=== PATIENT | female | born 1940 | race Caucasian/White ===

== ENCOUNTER → 2016-05-31 | Outpatient (CLI) | payer OTHER, MEDICARE | LOC: FIMAGING 12:53 | DX: Z12.31 Encounter for screening mammogram for malignant neoplasm of breast (principal) | CPT/HCPCS: G0202 ==

== ENCOUNTER 2018-04-23 11:17 | Emergency (ER) | payer OTHER, MEDICARE ==
--- NOTE | 2018-04-23 11:38 | EDPHY ---
H & P Stated Complaint: UPPER MID CP LAST NIGHT/AWAKENED AT 0400/GETTING BETTER TODAY Time Seen by Provider: 04/23/18 11:37 HPI/ROS: CHIEF COMPLAINT: Chest pressure HISTORY OF PRESENT ILLNESS: The patient presents the ED for evaluation of anterior chest pressure that began at 4:00 a.m. in the morning. The patient attributed her symptoms to gastroesophageal reflux disease. She took some Advil without improvement of her symptoms. They have gradually lessened this morning. She denies any abdominal pain, nausea or vomiting. She denies any radiation of the pain to the back neck or shoulders. She has no known history of coronary artery disease. The patient denies any melena. She denies any fever, cough or congestion. She denies recent infectious symptoms. She currently rates her pain is mild in nature. REVIEW OF SYSTEMS: A comprehensive 10 point review of systems is otherwise negative aside from elements mentioned in the history of present illness. Source: Patient - Personal History Current Tetanus Diphtheria and Acellular Pertussis (TDAP): No - Medical/Surgical History Hx Asthma: No Hx Chronic Respiratory Disease: No Hx Diabetes: No Hx Cardiac Disease: No Hx Renal Disease: No Hx Cirrhosis: No Hx Alcoholism: No Hx HIV/AIDS: No Hx Splenectomy or Spleen Trauma: No Other PMH: med- hypothyroidism. surg- D and C, ovarian cyst, appendectomy, tonsillectomy - Social History Smoking Status: Former smoker - Physical Exam Exam: General Appearance: Alert, no distress Eyes: Pupils equal and round no pallor or injection ENT, Mouth: Mucous membranes moist Respiratory: There are no retractions, lungs are clear to auscultation Cardiovascular: Regular rate and rhythm Gastrointestinal: Abdomen is soft and nontender, no masses, bowel sounds normal Neurological: A&O, normal motor function, normal sensory exam, normal cranial nerves Skin: Warm and dry, no rashes Musculoskeletal: Neck is supple nontender Extremities: symmetrical, full range of motion Constitutional: Initial Vital Signs Temperature (C) 36.3 C 04/23/18 11:25 Heart Rate 81 04/23/18 11:25 Respiratory Rate 17 04/23/18 11:25 Blood Pressure 119/54 L 04/23/18 11:25 O2 Sat (%) 95 04/23/18 11:25 O2 Delivery Mode Room Air Allergies/Adverse Reactions: No Known Allergies Allergy (Verified 04/23/18 11:24) Home Medications: Medication Instructions Recorded Synthroid 88 mcg (*) 12/28/15 Aspirin 81mg (*) 04/23/18 Medical Decision Making - Diagnostics EKG Interpretation: EKG: Complete interpretation has been separately recorded in the [facility] archive. Summary impression: Sinus rhythm, rate 67, slight left axis deviation , no ischemic changes noted Imaging Results: Imaging Impressions Chest X-Ray 04/23/18 11:27 Impression: No acute abnormality. ED Course/Re-evaluation: Patient presents to the ED with complaints of mid chest pain which began last night. The patient felt her symptoms were consistent with indigestion. She did not take any [id number] medications aside from Tylenol. She presents to the ED today secondary to ongoing pain. The patient has no risk factors for coronary artery disease aside from age. The patient's EKG demonstrates no evidence of ischemia. The patient's troponin is normal. The patient's CBC, liver function tests and lipase are unremarkable. Patient was given a GI cocktail in the emergency department and had complete resolution of her symptoms. I re-evaluated the patient at 1:00 p.m. And feel that she can be discharged home with a presumptive diagnosis of gastroesophageal reflux disease and esophageal spasm. Patient is advised to return to the ED for any worsening symptoms or other concerns. She will be advised to use Maalox and ranitidine. Differential Diagnosis: Differential diagnosis considered includes gastroesophageal reflux disease, pericarditis, myocarditis, pancreatitis, cholecystitis - Data Points Laboratory Results: Laboratory Results 04/23/18 11:45 04/23/18 11:45 04/23/18 04/23/18 04/23/18 11:51 11:45 11:45 WBC 11.13 10^3/uL H 10^3/uL (3.80-9.50) RBC 4.49 10^6/uL 10^6/uL (4.18-5.33) Hgb 13.9 g/dL g/dL (12.6-16.3) Hct 42.1 % % (38.0-47.0) MCV 93.8 fL fL (81.5-99.8) MCH 31.0 pg pg (27.9-34.1) MCHC 33.0 g/dL g/dL (32.4-36.7) RDW 14.0 % % (11.5-15.2) Plt Count 187 10^3/uL 10^3/uL (150-400) MPV 9.4 fL fL (8.7-11.7) Neut % (Auto) 77.0 % H % (39.3-74.2) Lymph % (Auto) 11.4 % L % (15.0-45.0) Dewitt % (Auto) 8.6 % % (4.5-13.0) Eos % (Auto) 2.2 % % (0.6-7.6) Baso % (Auto) 0.5 % % (0.3-1.7) Nucleat RBC Rel Count 0.0 % % (0.0-0.2) Absolute Neuts (auto) 8.56 10^3/uL H 10^3/uL (1.70-6.50) Absolute Lymphs (auto) 1.27 10^3/uL 10^3/uL (1.00-3.00) Absolute Monos (auto) 0.96 10^3/uL H 10^3/uL (0.30-0.80) Absolute Eos (auto) 0.25 10^3/uL 10^3/uL (0.03-0.40) Absolute Basos (auto) 0.06 10^3/uL 10^3/uL (0.02-0.10) Absolute Nucleated RBC 0.00 10^3/uL 10^3/uL (0-0.01) Immature Gran % 0.3 % % (0.0-1.1) Immature Gran # 0.03 10^3/uL 10^3/uL (0.00-0.10) Sodium 139 mEq/L mEq/L (135-145) Potassium 3.5 mEq/L mEq/L (3.5-5.2) Chloride 107 mEq/L mEq/L (97-110) Carbon Dioxide 24 mEq/l mEq/l (22-31) Anion Gap 8 mEq/L mEq/L (6-14) BUN 21 mg/dL mg/dL (7-23) Creatinine 0.7 mg/dL mg/dL (0.6-1.0) Estimated GFR > 60 Glucose 116 mg/dL H mg/dL (70-100) Calcium 8.9 mg/dL mg/dL (8.5-10.4) Total Bilirubin 1.5 mg/dL H mg/dL (0.1-1.4) Conjugated Bilirubin 0.2 mg/dL mg/dL (0.0-0.5) Unconjugated Bilirubin 1.3 mg/dL H mg/dL (0.0-1.1) AST 27 IU/L IU/L (14-46) ALT 22 IU/L IU/L (9-52) Alkaline Phosphatase 130 IU/L H IU/L (38-126) POC Troponin I 0.00 ng/mL ng/mL (0.00-0.08) Total Protein 7.2 g/dL g/dL (6.3-8.2) Albumin 4.1 g/dL g/dL (3.5-5.0) Lipase 119 IU/L IU/L (23-300) Medications Given: Discontinued Medications Al Hydroxide/Mg Hydroxide (Maalox Susp) 30 ml PO ONCE ONE Stop: 04/23/18 11:43 Last Admin: 04/23/18 11:49 Dose: 30 ml Hyoscyamine Sulfate (Levsin, Hyomax-Sl) 0.25 mg PO ONCE ONE Stop: 04/23/18 11:43 Last Admin: 04/23/18 11:49 Dose: 0.25 mg Lidocaine (Lidocaine 2% Viscous) 15 ml PO ONCE ONE Stop: 04/23/18 11:43 Last Admin: 04/23/18 11:49 Dose: 15 ml Point of Care Test Results: Chemistry 04/23/18 11:51 POC Troponin I 0.00 ng/mL ng/mL (0.00-0.08) Departure - Departure Disposition: Home, Routine, Self-Care Clinical Impression: Chest pain, Gastroesophageal reflux disease Condition: Good Instructions: Chest Pain (ED) Additional Instructions: 1. Please begin taking Zantac 150 mg twice daily. 2. Please use Maalox as needed for any symptoms of acid reflux. 3. Please follow-up with your primary care provider for recheck in the next week. 4. Please return to the ED for markedly worsening symptoms or other concerns. 5. The testing done in the emergency department today demonstrates no evidence of a heart attack or cardiac condition. Referrals: Mary Spence MD [Primary Care Provider] - As per Instructions
[2018-04-23] MEDS ORDERED: HYOSCYAMINE SULFATE 0.125 MG TAB PO ONE (11:42)
[2018-04-23] MEDS ORDERED: MAG HYDROX/AL HYDROX/SIMETH 30 ML UDCUP PO ONE (11:42)
[2018-04-23] MEDS ORDERED: LIDOCAINE 2% VISCOUS 15 ML UDCUP PO ONE (11:42)
[2018-04-23 12:05] LABS: PLATELET COUNT 187 10^3/uL (150-400)
[2018-04-23 12:59] VITALS: BP 115/84
--- NOTE | 2018-05-01 12:03 | CPEKG ---
Test Reason : OPEN Blood Pressure : / mmHG Vent. Rate : 067 BPM Atrial Rate : 068 BPM P-R Int : 180 ms QRS Dur : 100 ms QT Int : 428 ms P-R-T Axes : 052 -35 049 degrees QTc Int : 452 ms Sinus rhythm Probable left atrial enlargement Left axis deviation Confirmed by Joshua Drake ([id number]) on 05/01/2018 12:03:24 PM Referred By: Confirmed By:Joshua Drake
== END 2018-04-23 12:59 | disposition home or self-care (01) ==
DX: R07.9 Chest pain, unspecified (principal); K21.9 Gastro-esophageal reflux disease without esophagitis
CPT/HCPCS: 84484-ER

== ENCOUNTER → 2018-04-25 | Outpatient (CLI) | payer OTHER, MEDICARE | LOC: FIMAGING 13:48 | PROVIDERS: ATTEND Family Medicine | DX: R07.81 Pleurodynia (principal); K80.20 Calculus of gallbladder without cholecystitis without obstruction ==